=== PATIENT | male | born 1945 ===

== ENCOUNTER 2024-01-18 05:17 | Day surgery (SDC) | payer MEDICARE, BC ==
[2024-01-17 08:36] LABS: HEMATOCRIT 47.3 % (42.0-52.0); HEMOGLOBIN 16.3 g/dl (13.5-18.0); MEAN CELL VOLUME 90 fl (80.0-100.0); MEAN CORPUSCULAR HEMOGLOBIN 31 pg (27-31); MEAN CORPUSCULAR HGB CONC 35 g/dl (33.0-37.0); MEAN PLATELET VOLUME 12.3 fl (7.4-10.4); PLATELET COUNT 202 K/mm3 (130-400); RED BLOOD COUNT 5.24 M/mm3 (4.20-5.60)
[2024-01-17 08:57] LABS: ALBUMIN 3.7 g/dL (3.4-4.8); BILIRUBIN,TOTAL 1.6 mg/dL (0.2-1.2); CALCIUM 9.2 mg/dL (8.4-10.2); CREATININE, serum 1.06 mg/dL (0.72-1.25); POTASSIUM 3.9 mEq/L (3.5-4.5); TOTAL PROTEIN 7.2 g/dl (6.2-8.1)
[2024-01-18] VITALS (13 sets, daily range): BP systolic 107–154; BP diastolic 67–90; PULSE 51–65; TEMP 97.4–97.9
[~2024-01-18] VITALS: Ht 177.8 cm; Wt 96.2 kg
[~2024-01-18 05:17] MED LIST: LR 1,000 ML IV SCH
[2024-01-18] MEDS ORDERED: Gabapentin 100 MG CAP PO SCH (05:30)
[2024-01-18] MEDS ORDERED: Acetaminophen 500 MG TAB PO SCH ×3 (05:30→15:00)
[2024-01-18] MEDS ORDERED: CARDIZEM CD360 MG PO (06:08)
[2024-01-18] MEDS ORDERED: LIPITOR20 MG PO (06:08)
[2024-01-18] MEDS ORDERED: TIMOPTIC 0.5%-15 OU (06:09)
[2024-01-18] MEDS ORDERED: HCTZ 25MG TAB25 MG PO (06:09)
[2024-01-18] MEDS ORDERED: VITAMIN D362.5 MC1 PO (06:10)
[2024-01-18] MEDS ORDERED: DESYREL 50MG50 MG PO (06:10)
[2024-01-18] MEDS ORDERED: ASPIRIN E.C. 8181 MG PO (06:11)
--- NOTE | 2024-01-18 06:13 | NUR ---
Patient admitted to [facility] bay 1 at 0530. Admission assessments complete. Medications, allergies, and pharmacy confirmed. EKG obtained. Consent signed. 18G IV inserted into left hand, LR infusing without complications. Medications given, see EMAR. at bedside. Cart in low position, call light within reach. takes patients wedding. Glasses case at bedside. Pt requests to leave plastic beaded bracelet on left wrist, will communicate this with OR staff. Questions answered. VSS. Pt denies complaints.
[2024-01-18] MEDS ORDERED: Ondansetron 4 MG/2 ML VIAL ONE (06:41)
[2024-01-18] MEDS ORDERED: Lidocaine PF 2% (20 MG/ML) 5 ML VIAL ONE ×3 (06:41→06:49)
[2024-01-18] MEDS ORDERED: NS 100 ML IV ONE (06:41)
[2024-01-18] MEDS ORDERED: dexAMETHasone 10 MG/ML VIAL ONE (06:41)
[2024-01-18] MEDS ORDERED: Midazolam 2 MG/2 ML VIAL ONE (06:42)
[2024-01-18] MEDS ORDERED: fentaNYL 50 MCG/ML 2 ML VIAL ONE (06:42)
[2024-01-18] MEDS ORDERED: Rocuronium 50 MG/5 ML Multi-Dose VIAL ONE ×2 (06:42→09:00)
[2024-01-18] MEDS ORDERED: LR 1,000 ML IV SCH (07:30)
[2024-01-18] MEDS ORDERED: Naloxone 0.4 MG/ML VIAL IV PRN (07:30)
[2024-01-18] MEDS ORDERED: oxyCODONE 5 MG TAB PO PRN ×2 (07:30)
[2024-01-18] MEDS ORDERED: Ondansetron 4 MG/2 ML VIAL IV PRN ×2 (07:30→09:00)
[2024-01-18] MEDS ORDERED: traZODone 50 MG TAB PO PRN (07:30)
[2024-01-18] MEDS ORDERED: Morphine 4 MG/ML VIAL IV PRN (07:30)
[2024-01-18] MEDS ORDERED: Topical Skin Adhesive 1 EACH (1 ML) TOP ONE (07:51)
[2024-01-18] MEDS ORDERED: Glycopyrrolate 0.2 MG/ML 1 ML VIAL ONE (07:56)
[2024-01-18] MEDS ORDERED: Timolol 0.5% Ophth Soln 5 ML BOTTLE OP SCH (09:00)
[2024-01-18] MEDS ORDERED: hydroCHLOROthiazide 25 MG TAB PO SCH (09:00)
[2024-01-18] MEDS ORDERED: hydrALAZINE 20 MG/ML 1 ML VIAL IV PRN (09:00)
[2024-01-18] MEDS ORDERED: HYDROmorphone 1 MG/1 ML SYRINGE [PACU/SDC ONLY] IV PRN (09:00)
[2024-01-18] MEDS ORDERED: Morphine 2 MG/1 ML VIAL [PACU/SDC ONLY] IV PRN (09:00)
[2024-01-18] MEDS ORDERED: fentaNYL 50 MCG/ML 1 ML SYRINGE/VIAL [PACU/SDC ONLY] IV PRN (09:00)
--- NOTE | 2024-01-18 12:10 | NUR ---
Pt arrived to the floor from [facility]. Pt is awake, alert and oriented. Lap sites all well approximated with no drainage and all CAREY. Weaver catheter to depedent drainage, pale yellow output. IVF infusing to IV in his left hand. Pt rates pain 3/10 at this time and states it is tolerable. Heart rate regular, bradycardia at this time. Oriented pt and his to his room and educated on post op orders. Discussed diet and no straws or carbonation. I did give him some ice water at this time. Call light within reach, will continue to monitor
[2024-01-18] MEDS ORDERED: ceFAZolin 2 G in Water For Injection,Sterile 20 ML IV SCH (13:00)
--- NOTE | 2024-01-18 13:00 | NUR ---
Pt resting with eyes closed, even non labored breathing. Spouse also resting in recliner
--- NOTE | 2024-01-18 14:42 | NUR ---
blasting worker met with pt and his , Nemo [phone] to discuss discharge planning. He reports [place] live [place]. He sees Dr. García for PCP needs and obtains medications from [facility] with no difficulties. Pt is independent with ADLS and uses no DME. Pt's provided DPOA-HC listing her as primary. SW made a copy and placed on his chart. Discharge Plan: home
--- NOTE | 2024-01-18 15:49 | NUR ---
Pt doing well, he is tolerating clear liquids with no complaints. Educated pt and spouse on room service and how to order meals. No other questions, minimal pain at this time
--- NOTE | 2024-01-18 19:21 | NUR ---
Pt tolerated general diet with no complaints. Pt having adequate output. Mild complaints of pain, states the scheduled tylenol is working well. No needs, report given
[2024-01-19] VITALS (7 sets, daily range): BP systolic 127–155; BP diastolic 74–80; PULSE 57–58; TEMP 97.2–97.6
--- NOTE | 2024-01-19 01:49 | NUR ---
Shift assessment completed- see documentation. Pt is alert and oriented. He complains of minimal pain and has been managed by scheduled tylenol. He continues to have LR running at 75 ml/hr. He reports passing flatus. Weaver is patent and draining clear urine. Surgical lap sites are CAREY and free of redness or drainage. He denies any other needs at this time. Fall precautions in place and call light left within reach.
[2024-01-19 07:06] LABS: HEMATOCRIT 41.2 % (42.0-52.0)
[2024-01-19 07:15] LABS: HEMOGLOBIN 14.3 g/dl (13.5-18.0)
[2024-01-19 07:33] LABS: CALCIUM 7.8 mg/dL (8.4-10.2); CREATININE, serum 0.83 mg/dL (0.72-1.25); POTASSIUM 3.5 mEq/L (3.5-4.5)
--- NOTE | 2024-01-19 08:45 | NUR ---
Patient sitting up in chair, rounded this am. Plan of care reviewed. He did well with breakfast without nausea. Owen DC this am and he tolerated well. Voided x1. Patient at bedside, he looks forward to discharge home today. IV to INT. abdomen soft, bowels active.
--- NOTE | 2024-01-19 12:27 | NUR ---
Data: Patient and accepted spiritual care visit offered during Manager Visual rounds. They are hoping to discharge today. Talked about their hometown of [place], [place]. Assessment: Patient is confident about his relationship with God; trusts his doctors; is appropriately concerned about the growths removed from his kidneys. Plan of Care: Manager Visual provided a prayer for the results of the biopsy and for a discharge from the hospital. Both Patient and thanked Manager Visual for the visit. Chaplains will remain available as needed/requested while Patient is admitted to this hospital.
--- NOTE | 2024-01-19 13:43 | NUR ---
Patient ready to get home, orders obtained from Dr. Bowden. Patient has been voided well post june removal. Denies wanting lunch before discharge. All discharge instructions reviewed. We reviewed activity & diet restrictions. Incisions cares and shower cares discussed. Int DC. Medication list with last dose taken reviewed and change in ASA. Follow up appt scheduled and reviewed. Patient ambulated out with taking him home. Denies questions or concerns.
== END 2024-01-19 13:49 | disposition home or self-care (01) ==
LOC: SDCO 05:17 → SURG 11:50 → SDCO 01-19 13:49
PROVIDERS: Urology
DX: D30.02 Benign neoplasm of left kidney (principal); I10 Essential (primary) hypertension; Z79.899 Other long term (current) drug therapy; Z79.82 Long term (current) use of aspirin
CPT/HCPCS: OP; A4314; A9284; J0688; J0690; J1100; J1170; J2250; J2405; J2704; J2795; J3010; J7120